=== PATIENT | male | born 1995 | race Caucasian/White ===

== ENCOUNTER 2021-07-20 15:07 | Emergency (ER) | payer BC ==
[~2021-07-20] VITALS: Ht 175.3 cm; Wt 72.6 kg
[~2021-07-20 15:07] MED LIST: CARAFATE 1 GM TA1 GM PO; CRUTCH1 EACH MC; FLEXERIL PO; NORCO 5-325 TA1 EACH PO; OMEPRAZOLE20 M2 PO
[2021-07-20] MEDS ORDERED: TOPROL XL25 MG PO (15:16)
[2021-07-20 17:06] LABS: ABSOLUTE BASOPHILS 0.1 thou/uL (0.0-0.2); ABSOLUTE LYMPHOCYTES 0.9 thou/uL (0.8-5.3); ABSOLUTE MONOCYTES 0.3 thou/uL (0.0-1.2); ABSOLUTE NEUTROPHILS 4.7 thou/uL (1.6-8.1); BASOPHILS 0.9 %; EOSINOPHILS 0.4 %; HEMATOCRIT 42.8 % (42.0-52.0); HEMOGLOBIN 14.8 gm/dL (14.0-18.0); LYMPHOCYTES 15.4 %; MCH 29.5 pg (26.0-34.0); MCHC 34.7 g/dL (28.0-37.0); MONOCYTES 5.7 %; MPV 8.1 fl. (7.2-11.1); NUCLEATED RBCS 0 /100WBC; PLATELET COUNT* 178 thou/uL (150-400); POLYS 77.6 %; RBC 5.03 mil/uL (4.50-6.00); RDW-CV 13.4 % (10.5-14.5); WBC 6.1 thou/uL (4.0-11.0)
[2021-07-20 17:11] LABS: CALCIUM 8.9 mg/dL (8.5-10.1); CREATININE 0.9 mg/dL (0.6-1.3); POTASSIUM 3.6 mmol/L (3.5-5.1)
[2021-07-20 17:16] LABS: ALBUMIN 4.3 g/dL (3.4-5.0); TOTAL BILIRUBIN 0.5 mg/dL (<0.1-1.0); TOTAL PROTEIN 7.6 g/dL (6.4-8.2)
[2021-07-20 17:55] VITALS: BP 94/58
[2021-07-20 18:05] LABS: URINE BILIRUBIN NEGATIVE (Negative); URINE BLOOD NEGATIVE (Negative); URINE CLARITY CLOUDY; URINE COLOR YELLOW; URINE GLUCOSE-RANDOM NEGATIVE (Negative); URINE KETONES NEGATIVE (Negative); URINE LEUKOCYTES NEGATIVE (Negative); URINE NITRITE NEGATIVE (Negative); URINE PROTEIN NEGATIVE (Negative); URINE SPECIFIC GRAVITY 1.015 (1.005-1.030); URINE UROBILINOGEN 0.2 E.U./dl (0.2-1.0)
[2021-07-20 18:11] LABS: MUCUS None Seen strn/LPF (None Seen)
[2021-07-20 18:12] LABS: AMORPHOUS PHOSPHATES Many /LPF (None Seen); CASTS None Seen /LPF (None Seen)
[2021-07-20 18:13] LABS: AMP/METHAMP Negative (Negative); BACTERIA None Seen /HPF (None Seen); BARBITURATES Negative (Negative); BENZODIAZEPINES Negative (Negative); COCAINE Negative (Negative); METHADONE Negative (Negative); OPIATES Negative (Negative); PCP Negative (Negative); SQUAMOUS NONE SEEN /LPF (0-3); THC Negative (Negative); URINE RBC None Seen /HPF (0-2); URINE WBC None Seen /HPF (0-5)
--- NOTE | 2021-07-21 09:05 | EKG ---
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1995 Requested By: Abhi Yao Order Number: [id number] MD: Angi Vargas Measurements Intervals [place] Rate: 70 P: 54 IA: 184 QRS: -28 QRSD: 113 T: 44 QT: 406 QTc: 439 Interpretive Statements Sinus rhythm Incomplete right bundle branch block compared to ECG 05/23/2017 03:43:52 Myocardial infarct finding no longer present Electronically Signed On 07-21-2021 9:05:40 [employer]OWN PLANNER by Angi Vargas [email or web address] <ELECTRONICALLY SIGNED> By: Angi Vargas MD, FACC 07/21/21 0905 1508 1508 Angi Vargas MD, [facility] /EPI
== END 2021-07-20 17:55 | disposition home or self-care (01) ==
LOC: M.ERS 15:07
PROVIDERS: Physician Assistant
DX: Q21.1 Atrial septal defect (principal); F17.210 Nicotine dependence, cigarettes, uncomplicated; Z79.899 Other long term (current) drug therapy; Z88.2 Allergy status to sulfonamides

== ENCOUNTER 2021-09-27 14:03 | Emergency (ER) | payer BC ==
[~2021-09-27] VITALS: Ht 177.8 cm; Wt 77.1 kg
[~2021-09-27 14:03] MED LIST changes: +TOPROL XL25 MG PO
[2021-09-27] MEDS ORDERED: DOXYCYCLINE 10100 M2 PO (14:16)
[2021-09-27] MEDS ORDERED: PREVACID30 MG PO (14:16)
[2021-09-27] MEDS ORDERED: EFFEXOR XR75 MG PO (14:16)
--- NOTE | 2021-09-27 14:40 | EKG ---
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[facility] : 1995 Requested By: Cathryn Way Order Number: [id number] MD: Angi Vargas Measurements Intervals [place] Rate: 73 P: 73 [place]: 187 QRS: 30 QRSD: 124 T: 32 QT: 392 QTc: 432 Interpretive Statements Sinus rhythm Right bundle branch block Compared to ECG 07/20/2021 15:08:55 Right bundle-branch block now present Incomplete right bundle-branch block no longer present Electronically Signed On 09-27-2021 14:39:57 MANAGED SERVICES CONSULTANT by Angi Vargas [email or web address] <ELECTRONICALLY SIGNED> By: Angi Vargas MD, FACC 09/27/21 1439 1409 1409 Angi Vargas MD, FAC /EPI
[2021-09-27 15:01] LABS: ABSOLUTE MONOCYTES 0.3 thou/uL (0.0-1.2); ABSOLUTE NEUTROPHILS 3.1 thou/uL (1.6-8.1); BASOPHILS 0.7 %; EOSINOPHILS 0.4 %; HEMATOCRIT 44.6 % (42.0-52.0); HEMOGLOBIN 15.5 gm/dL (14.0-18.0); LYMPHOCYTES 22.4 %; MCH 29.6 pg (26.0-34.0); MCHC 34.9 g/dL (28.0-37.0); MCV 84.9 fL (80.0-100.0); MONOCYTES 7.1 %; MPV 8.2 fl. (7.2-11.1); NUCLEATED RBCS 0 /100WBC; PLATELET COUNT* 147 thou/uL (150-400); POLYS 69.4 %; RBC 5.25 mil/uL (4.50-6.00); RDW-CV 12.6 % (10.5-14.5); WBC 4.5 thou/uL (4.0-11.0)
[2021-09-27 15:06] LABS: CALCIUM 9.1 mg/dL (8.5-10.1); CREATININE 0.8 mg/dL (0.6-1.3); POTASSIUM 3.9 mmol/L (3.5-5.1)
[2021-09-27 15:16] LABS: ALBUMIN 4.4 g/dL (3.4-5.0); MAGNESIUM 1.8 mg/dL (1.8-2.4); TOTAL BILIRUBIN 0.6 mg/dL (<0.1-1.0); TOTAL PROTEIN 7.3 g/dL (6.4-8.2)
[2021-09-27 17:48] VITALS: BP 120/78
== END 2021-09-27 17:48 | disposition home or self-care (01) ==
LOC: M.ERS 14:03
PROVIDERS: Nurse Practitioner Family
DX: I45.10 Unspecified right bundle-branch block (principal); Z79.899 Other long term (current) drug therapy; Z88.2 Allergy status to sulfonamides; Z87.891 Personal history of nicotine dependence

== ENCOUNTER → 2021-10-20 | Outpatient (CLI) | payer BC ==
[~2021-10-20] MED LIST changes: +DOXYCYCLINE 10100 M2 PO; +EFFEXOR XR75 MG PO; +PREVACID30 MG PO
[2021-10-20 10:02] LABS: ABSOLUTE LYMPHOCYTES 1.1 thou/uL (0.8-5.3); ABSOLUTE MONOCYTES 0.3 thou/uL (0.0-1.2); ABSOLUTE NEUTROPHILS 2.9 thou/uL (1.6-8.1); BASOPHILS 0.7 %; EOSINOPHILS 0.8 %; HEMATOCRIT 45.9 % (42.0-52.0); HEMOGLOBIN 15.5 gm/dL (14.0-18.0); MCH 29.1 pg (26.0-34.0); MCHC 33.8 g/dL (28.0-37.0); MCV 86.1 fL (80.0-100.0); MONOCYTES 6.8 %; MPV 7.9 fl. (7.2-11.1); NUCLEATED RBCS 0 /100WBC; PLATELET COUNT* 134 thou/uL (150-400); POLYS 66.7 %; RBC 5.32 mil/uL (4.50-6.00); WBC 4.3 thou/uL (4.0-11.0)
[2021-10-20 10:24] LABS: ALBUMIN 4.5 g/dL (3.4-5.0); CALCIUM 9.3 mg/dL (8.5-10.1); POTASSIUM 3.7 mmol/L (3.5-5.1); TOTAL BILIRUBIN 0.7 mg/dL (<0.1-1.0); TOTAL PROTEIN 7.5 g/dL (6.4-8.2)
[2021-10-20 11:30] LABS: ESR (SEDRATE) 1 mm/hr (0-15)
[2021-10-21 21:06] LABS: ANA INTERPRETATION Negative (())
== END ==
LOC: M.LAB 09:35
PROVIDERS: ATTEND Internal Medicine
DX: R07.9 Chest pain, unspecified (principal); M41.84 Other forms of scoliosis, thoracic region; R06.02 Shortness of breath; R53.83 Other fatigue

== ENCOUNTER → 2021-10-31 | Outpatient (CLI) | payer BC ==
[~2021-10-31] VITALS: Ht 175.3 cm; Wt 77.1 kg
[~2021-10-31] MED LIST changes: +B COMPLEX1 EACH PO; +VITAMIN B-121000 MC2 PO; +VITAMIN D310 MC1 PO; +ZINC30 MG PO
[2021-10-31 08:30] VITALS: BP 109/75
--- NOTE | 2021-10-31 08:40 | NUR ---
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 PT VOICED CONCERN ABOUT TAKING METOPROLOL HE REPORTS IT HAS CAUSED SIGNIFICANT DROP IN HR & BP LEADING TO HOSPITALIZATION IN THE PAST. 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 HE CURRENTLY TAKES METOPROLOL SUCCINATE 25MG DAILY WHICH HE TOOK THIS MORNING. PT REPORTS HE FEELS ANXIOUS ABOUT TAKING EXTRA DOSE. CALL PLACED TO DR LERMA TO REPORT ALL OF THE ABOVE. ORDER RECEIVED TO GIVE ATIVAN 2MG PO X1 AND METOPROLOL TARTRATE 50MG, RATHER THAN 150MG DOSE CALLED FOR BY PROTOCOL. ATIVAN ADMINISTERED. PT REMAINS CONCERNED ABOUT METOPROLOL, REQUESTS TO GIVE ATIVAN TIME TO SEE IF DECREASED ANXIETY WILL DECREASE HR. DRUG COMPARISON REPORT OF METOPROLOL SUCCINATE VS TARTRATE PRINTED FROM [employer] FOR PT EDUCATION REGARDING PHARMACOKINETIC & PHARMACODYNAMIC DIFFERENCES BETWEEN THE TWO TO EASE ANXIETY. IVF INITIATED AFTER IV STARTED, INFUSING BY GRAVITY TO REDUCE ANY HR INCREASE R/T DEHYDRATING FROM MILD FASTING.
[2021-10-31 08:50] VITALS: BP 101/60
[2021-10-31 09:32] VITALS: BP 109/76
--- NOTE | 2021-10-31 09:52 | NUR ---
METOPROLOL 50MG GIVEN AT 0932. CURRENT HR 89. PT STATES HE FEELS VERY UNCOMFORTABLE WITH SUBSEQUENT DOSING IF UNABLE TO REACH GOAL OF 55BPM. EDUCATION AND COMFORT PROVIDED.
--- NOTE | 2021-10-31 10:30 | NUR ---
DR LERMA AT BEDSIDE TO SPEAK WITH PT. CURRENT HR 101. PER DR LERMA, ADDITIONAL METOPROLOL UNLIKELY TO DECREASE HR SUFFICIENTLY TO PROCEED WITH CTA. PT STATES HE WOULD LIKE TO RESCHEDULE IN HOPES OF LESSER ANXIETY ON ANOTHER DAY HE WILL KNOW EXACTLY WHAT TO EXPECT. DR LERMA AGREEABLE TO THIS. PT RESCHEDULED FOR Sunday11/03/21 AT 1000 AND NOTIFIED BY PHONE OF NEW APPT TIME.
== END | disposition home or self-care (01) ==
LOC: M.CT 07:41 → M.LAB 08:00 → M.CT 08:30
PROVIDERS: ATTEND Internal Medicine
DX: R07.9 Chest pain, unspecified (principal); Z53.8 Procedure and treatment not carried out for other reasons; M54.9 Dorsalgia, unspecified; K21.9 Gastro-esophageal reflux disease without esophagitis; Z98.890 Other specified postprocedural states; Z79.899 Other long term (current) drug therapy; Z88.2 Allergy status to sulfonamides

== ENCOUNTER → 2021-11-03 | Outpatient (CLI) | payer BC ==
[~2021-11-03] VITALS: Ht 175.3 cm; Wt 77.1 kg
[2021-11-03 10:23] VITALS: BP 108/70
[2021-11-03 10:54] VITALS: BP 109/61
[2021-11-03 11:45] VITALS: BP 98/62
[2021-11-03 12:14] VITALS: BP 88/49
[2021-11-03 12:37] VITALS: BP 93/53
== END ==
LOC: M.CT 09:46
PROVIDERS: ATTEND Internal Medicine
DX: I25.10 Atherosclerotic heart disease of native coronary artery without angina pectoris (principal); Q24.8 Other specified congenital malformations of heart; R07.9 Chest pain, unspecified